=== PATIENT | male | born 1960 | race Caucasian/White ===

== ENCOUNTER 2016-10-10 11:18 | Day surgery (SDC) | payer OTHER ==
[2016-10-08 09:34] VITALS: BMI 24.6
[~2016-10-10 11:18] MED LIST: LACTATED RINGERS 1,000 ML IV SCH; LIDOCAINE 1% 20 ML VIAL (10MG/ML) FOR IV START INTRADERMA PRN
[2016-10-10 13:34] VITALS: TEMP 96.7
[2016-10-10] MEDS ORDERED: PROPOFOL 10 MG/ML 20 ML VIAL IV ONE (13:58)
--- NOTE | 2016-10-10 14:28 | P.PCN ---
Date of Procedure: 10/10/16 Procedure(s) Performed: Procedure: Colonoscopy and polypectomy. Preoperative diagnosis: History of polyps. Postoperative diagnosis: Rectal polyp snared but no large polyps or cancer. Preparation: HalfLytely prep. Sedation: Was provided by anesthesia. Brief clinical history: The patient is a 56-year-old male who was scheduled for this evaluation because of history of polyps. His last exam was around 2-3 years ago. At this time, he has no abdominal complaints, bleeding or anemia. Procedure: With the patient on his left lateral decubitus position and after informed consent and adequate sedation, the perianal area was inspected and it did not show any fissures or fistulas. There were no masses felt on digital rectal examination. The Olympus CFQ 160L video colonoscope was then inserted in the rectum in the usual fashion and advanced to the cecum. The preparation was less than ideal. I was able to suction thick secretions and fecal debris. The mucosa appeared healthy. In the rectum, close to the rectosigmoid junction , there was a small polyp measuring around 1 cm which was snared and retrieved by suction but there were no large polyps or cancer. I retroflexed endoscope in the rectum before the endoscope was withdrawn. The patient tolerated the procedure well. Plan: The patient was reassured. In light of his less than ideal preparation today and the finding of polyp, I recommended repeat exam in 3 years before we go to a 5 years scheduled. He will follow up with you as planned.
[2016-10-10 14:38] VITALS: RESP 18
[2016-10-10 14:52] VITALS: BP 123/78; PULSE 77
== END 2016-10-10 15:12 | disposition home or self-care (01) ==
LOC: ORWHC2ENDO 11:18
DX: Z12.11 Encounter for screening for malignant neoplasm of colon (principal); D12.8 Benign neoplasm of rectum; I25.10 Atherosclerotic heart disease of native coronary artery without angina pectoris; J44.9 Chronic obstructive pulmonary disease, unspecified; I10 Essential (primary) hypertension; E78.5 Hyperlipidemia, unspecified; I42.9 Cardiomyopathy, unspecified; K21.9 Gastro-esophageal reflux disease without esophagitis; F17.200 Nicotine dependence, unspecified, uncomplicated; Z86.010 Personal history of colon polyps; Z88.8 Allergy status to other drugs, medicaments and biological substances; Z79.52 Long term (current) use of systemic steroids; Z79.891 Long term (current) use of opiate analgesic; Z79.899 Other long term (current) drug therapy; Z95.810 Presence of automatic (implantable) cardiac defibrillator
CPT/HCPCS: 45385; 88305; J2704

== ENCOUNTER → 2016-12-24 | Outpatient (CLI) | payer OTHER ==
--- NOTE | 2016-12-24 15:56 | US ---
EXAMINATION TYPE: US thyroid st tissue head/neck DATE OF EXAM: 12/24/2016 COMPARISON: NONE CLINICAL HISTORY: R94.6 ABN THYROID FUNCTION STUDIES. Abnormal labs GLAND SIZE: Right Lobe: 5.0 x 2.8 x 2.0 cm Overall Parenchyma: heterogenous Left Lobe: 4.7 x 2.8 x 1.5 cm Overall Parenchyma: heterogeneous Isthmus Thickness: 0.7 cm NODULES RIGHT: # of nodules measured on right: 0 LEFT: # of nodules measured on left: 0 ISTHMUS: # of nodules measured in the isthmus: 0 Bilateral neck scanned, no evidence of lymphadenopathy. Bilateral thyroid gland enlarged and heteroge neous IMPRESSION: NORMAL THYROID ULTRASOUND.
== END | disposition home or self-care (01) ==
LOC: RADUSWWP 15:01
PROVIDERS: ATTEND Family Medicine
DX: R94.6 Abnormal results of thyroid function studies (principal)
CPT/HCPCS: 76536